=== PATIENT | female | born 1950 | race Caucasian/White ===

== ENCOUNTER 2022-03-26 09:03 | Day surgery (SDC) | payer MEDICARE ==
[2022-03-26] MEDS ORDERED: fentaNYL 100 MCG/2 ML SDV ONE (09:29)
[2022-03-26] MEDS ORDERED: Propofol 200 MG/20 ML SDV ONE (09:29)
[2022-03-26] MEDS ORDERED: Midazolam 1 MG/ML 2 ML SDV ONE (09:29)
[2022-03-26] MEDS ORDERED: Lactated Ringers 1,000 ML IV SCH (09:45)
[2022-03-26 13:24] VITALS: BP 156/99; PULSE 68
== END 2022-03-26 13:45 | disposition home or self-care (01) ==
LOC: JP.SDS 09:03
PROVIDERS: ATTEND Surgery
DX: Z12.11 Encounter for screening for malignant neoplasm of colon (principal); K63.5 Polyp of colon; K57.30 Diverticulosis of large intestine without perforation or abscess without bleeding; I10 Essential (primary) hypertension
CPT/HCPCS: 45385; J2250; J2704; J3010; J7120; 88305